=== PATIENT | female | born 1950 | race Caucasian/White ===

== ENCOUNTER 2017-01-06 00:27 | Emergency (ER) | payer OTHER ==
[2017-01-06 01:36] LABS: BASOPHIL % 1.6 % (0-2); PLATELET COUNT 323 x10^3mcL (130-400); RED CELL DISTRIBUTION WIDTH 12.9 % (11.5-14.5)
[2017-01-06 01:50] LABS: CALCIUM 8.7 mg/dL (8.5-10.1); CARBON DIOXIDE 29.1 mmol/L (21-32); CHLORIDE SERUM 104 mmol/L (98-107); CREATININE SERUM 0.9 mg/dL (0.6-1.0); GFR1 > 60 mL/min; GLUCOSE SERUM 128 mg/dL (74-106); POTASSIUM SERUM 3.3 mmol/L (3.5-5.1); SODIUM SERUM 140 mmol/L (136-145)
[2017-01-06 01:54] LABS: ALBUMIN 3.7 g/dL (3.4-5.0); ALKALINE PHOSPHATASE 143 U/L (46-116); ALT/SGPT 12 U/L (14-59); AMYLASE 69 U/L (25-115); AST/SGOT 12 U/L (15-37); BILIRUBIN TOTAL 0.28 mg/dL (0.20-1.00); LIPASE 258 IU/L (73-393); TOTAL PROTEIN, SERUM 7.8 g/dL (6.4-8.2)
[2017-01-06 02:00] LABS: UA SPECIFIC GRAVITY <=1.005 (1.005-1.035); microscopic required? YES; urine erythrocyte TRACE (NEGATIVE)
[2017-01-06 05:45] VITALS: BP 156/92
== END 2017-01-06 05:45 | disposition home or self-care (01) ==
LOC: ED 00:27
PROVIDERS: Emergency Medicine
DX: N39.0 Urinary tract infection, site not specified (principal); I10 Essential (primary) hypertension; E07.9 Disorder of thyroid, unspecified
CPT/HCPCS: J3010; Q0092

== ENCOUNTER 2017-04-14 00:49 | Inpatient (IN) | payer OTHER ==
[~2017-04-14] VITALS: Ht 157.5 cm; Wt 87.1 kg
[2017-04-14] VITALS (8 sets, daily range): BP systolic 128–180; BP diastolic 63–77
[2017-04-14] MEDS ORDERED: METOPROLOL SUC100 M2 PO (01:17)
[2017-04-14] MEDS ORDERED: LOSARTAN POTASS50 M1 PO (01:17)
[2017-04-14] MEDS ORDERED: ADALAT CC30 MG PO (01:18)
[2017-04-14] MEDS ORDERED: ASPIR 8181 MG PO (01:18)
[2017-04-14] MEDS ORDERED: ZOLOFT50 MG PO (01:19)
[2017-04-14 01:43] LABS: PLATELET COUNT 203 x10^3mcL (130-400); RED CELL DISTRIBUTION WIDTH 13.5 % (11.5-14.5)
[2017-04-14 01:58] LABS: ALKALINE PHOSPHATASE 114 U/L (46-116); ALT/SGPT 25 U/L (14-59); AST/SGOT 22 U/L (15-37); BILIRUBIN TOTAL 0.44 mg/dL (0.20-1.00); CALCIUM 8.6 mg/dL (8.5-10.1); CARBON DIOXIDE 26.3 mmol/L (21-32); CHLORIDE SERUM 105 mmol/L (98-107); CREATININE SERUM 0.8 mg/dL (0.6-1.0); GFR1 > 60 mL/min; GLUCOSE SERUM 133 mg/dL (74-106); MAGNESIUM 1.7 mg/dL (1.8-2.4); SODIUM SERUM 143 mmol/L (136-145); TOTAL PROTEIN, SERUM 6.9 g/dL (6.4-8.2)
[2017-04-14 01:59] LABS: ALBUMIN 3.3 g/dL (3.4-5.0)
[2017-04-14 02:05] LABS: FREE T4 0.96 ng/dL (0.76-1.46); FREE THYROXINE INDEX 2.3 ug/dL (1.4-4.5); T3 TOTAL 1.16 ng/mL; T4(THYROXINE) 6.8 ug/dL (4.7-13.3)
[2017-04-14] MEDS ORDERED: METOPROLOL TAR100 MG PO (02:49)
[2017-04-14 03:59] LABS: CHOLESTEROL/HDL RATIO 3.7; PHOSPHOROUS 4.3 mg/dL (2.5-4.9)
[2017-04-14 04:05] LABS: microscopic required? YES; urine erythrocyte 1+ (NEGATIVE)
[2017-04-14 15:05] LABS: CALCIUM 8.6 mg/dL (8.5-10.1); MAGNESIUM 1.9 mg/dL (1.8-2.4); POTASSIUM SERUM 4.1 mmol/L (3.5-5.1)
[2017-04-15 06:11] VITALS: BP 159/78
[2017-04-15 06:22] LABS: CALCIUM 8.4 mg/dL (8.5-10.1); CARBON DIOXIDE 25.5 mmol/L (21-32); CHLORIDE SERUM 106 mmol/L (98-107); CREATININE SERUM 0.8 mg/dL (0.6-1.0); GFR1 > 60 mL/min; GLUCOSE SERUM 124 mg/dL (74-106); MAGNESIUM 1.7 mg/dL (1.8-2.4); PHOSPHOROUS 3.5 mg/dL (2.5-4.9); SODIUM SERUM 141 mmol/L (136-145)
[2017-04-15 07:07] LABS: BASOPHIL % 0.3 % (0-2); PLATELET COUNT 205 x10^3mcL (130-400); RED CELL DISTRIBUTION WIDTH 14.7 % (11.5-14.5)
[2017-04-15 09:38] VITALS: BP 104/55; BP 162/79
[2017-04-15 14:21] VITALS: BP 162/73
[2017-04-15 16:58] VITALS: BP 159/70
[2017-04-15 20:44] VITALS: BP 100/79
[2017-04-16 06:04] VITALS: BP 151/63
[2017-04-16 06:26] LABS: BASOPHIL % 0.4 % (0-2); PLATELET COUNT 197 x10^3mcL (130-400)
[2017-04-16 06:27] LABS: CALCIUM 8.4 mg/dL (8.5-10.1); CARBON DIOXIDE 26.7 mmol/L (21-32); CHLORIDE SERUM 107 mmol/L (98-107); CREATININE SERUM 0.8 mg/dL (0.6-1.0); GFR1 > 60 mL/min; GLUCOSE SERUM 108 mg/dL (74-106); MAGNESIUM 2.2 mg/dL (1.8-2.4); PHOSPHOROUS 4.6 mg/dL (2.5-4.9); POTASSIUM SERUM 3.6 mmol/L (3.5-5.1); SODIUM SERUM 141 mmol/L (136-145)
[2017-04-16 09:58] VITALS: BP 156/69
[2017-04-16] MEDS ORDERED: MECLIZINE HCL12.5 MG PO (12:29)
[2017-04-16] MEDS ORDERED: FLO4 PO (12:43)
[2017-04-16] MEDS ORDERED: COZAAR100 MG PO (12:51)
[2017-04-16] MEDS ORDERED: LAC PO (12:56)
[2017-04-16] MEDS ORDERED: KEFLEX500 M1 PO (12:56)
[2017-04-16] MEDS ORDERED: LIPITOR20 MG GT (12:58)
[2017-04-16 13:08] VITALS: BP 156/69
[2017-04-16 14:05] VITALS: BP 157/69
== END 2017-04-16 15:00 | disposition home or self-care (01) | DRG 205 ==
LOC: ED 00:49 → DU 02:17
PROVIDERS: Emergency Medicine; ADMIT Family Medicine
DX: M94.0 Chondrocostal junction syndrome [Tietze] (principal); N17.0 Acute kidney failure with tubular necrosis; N39.0 Urinary tract infection, site not specified; E44.1 Mild protein-calorie malnutrition; E87.6 Hypokalemia; E83.42 Hypomagnesemia; F32.9 Major depressive disorder, single episode, unspecified; R31.9 Hematuria, unspecified; R73.03 Prediabetes; N20.0 Calculus of kidney; R42 Dizziness and giddiness; E07.9 Disorder of thyroid, unspecified; I65.23 Occlusion and stenosis of bilateral carotid arteries; I34.0 Nonrheumatic mitral (valve) insufficiency; I36.1 Nonrheumatic tricuspid (valve) insufficiency; I10 Essential (primary) hypertension; D64.9 Anemia, unspecified; Z79.82 Long term (current) use of aspirin; Z68.35 Body mass index [BMI] 35.0-35.9, adult; Z91.19 Patient's noncompliance with other medical treatment and regimen; Z86.73 Personal history of transient ischemic attack (TIA), and cerebral infarction without residual deficits
CPT/HCPCS: 82962; 83880; 84439; A9500; J0696; J1885; J2785; J3475; J7030; J8597; Q0092